=== PATIENT | male | born 1965 | race African-American/Black ===

== ENCOUNTER 2018-04-23 05:20 | Inpatient (IN) | payer BC, MEDICARE ==
[~2018-04-23] VITALS: Ht 172.7 cm; Wt 71.7 kg
--- NOTE | 2018-04-23 05:30 | NUR ---
ED Nurse Note: Pt walked into the ER stating that he missed his dyalisis. regular days are mon, mon, , and mon. pt stated he was traveling so he missed his dyalisis. additionally, pt states the feels a bit of fluid overload, (additionall weight, pressure around the heart and lungs). external defibulater noted. fistula located on L arm, thrill and bruit noted. pulsation and sensation noted on fistula extremity. traig BP is 175/ 101.
[2018-04-23 05:40] VITALS: BP 171/101
[2018-04-23] MEDS ORDERED: CALCIUM ACETAT667 MG PO (05:43)
[2018-04-23] MEDS ORDERED: VELPHORO500 MG PO ×2 (05:43→05:45)
[2018-04-23] MEDS ORDERED: CALCIUM ACETAT667 M1 PO (05:45)
[2018-04-23] MEDS ORDERED: LISINOPRIL20 MG ORAL (05:47)
[2018-04-23] MEDS ORDERED: CARVEDILOL25 MG ORAL (05:47)
[2018-04-23] MEDS ORDERED: LIPITOR80 MG ORAL (05:48)
[2018-04-23 06:12] LABS: BASOPHILS % (AUTO) 0.9 % (0.0-2.0); EOSINOPHILS % (AUTO) 6.3 % (0.0-3.0); HEMATOCRIT 34.8 % (42.0-52.0); HEMOGLOBIN 10.6 G/DL (14.2-18.0); LYMPHOCYTES % (AUTO) 19.8 % (20.0-45.0); MEAN CORPUSCULAR VOLUME 82 FL (80-99); MONOCYTES % (AUTO) 9.9 % (1.0-10.0); NEUTROPHILS % (AUTO) 63.1 % (45.0-75.0); PLATELET COUNT 130 K/UL (150-450); RED BLOOD COUNT 4.23 M/UL (4.70-6.10); RED CELL DISTRIBUTION WIDTH 13.2 % (11.6-14.8); WHITE BLOOD COUNT 5.5 K/UL (4.8-10.8)
--- NOTE | 2018-04-23 06:16 | Emergency Room Report ---
History of Present Illness General Chief Complaint: General Complaint Source: Patient Present Illness HPI Henry is a 52-year-old male with a history of renal failure on hemodialysis. He normally gets it Monday and Monday. Recently he has to get it more frequently at 4 times a week. 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 He missed his dialysis but got it on Monday. He had some cough and little congestion shortness of breath. He try to get to dialysis this morning but there was no slots. He was told by his manager of digital to come in to check to make sure. Patient has no chest pain. Nothing made it better. No exertional component. No diaphoresis. No nausea no vomiting. Coughing is nonproductive in nature. Patient has a external Zoll defibrillator. He said that his ejection fraction is around 15-20% per his retail sales representative. He said that insurance would not pay for an internal defibrillator so he bought this one just in case. Allergies: Coded Allergies: No Known Allergies (Unverified , 04/23/18) Patient History Past Medical History: see triage record, old chart reviewed, HTN, CHF, renal disease, dialysis Past Surgical History: other Pertinent Family History: none Social History: Denies: smoking Immunizations: other Reviewed Nursing Documentation: PMH: Agreed; PSxH: Agreed Nursing Documentation-PMH Hx Hypertension: Yes - CHF Hx Pacemaker: Yes - EXTERNAL DEFIB Hx Dialysis: Yes Review of Systems Eye: Denies: eye pain, blurred vision ENT: Denies: ear pain, nose congestion, throat swelling Respiratory: Reports: cough; Denies: shortness of breath Cardiovascular: Denies: chest pain, palpitations Gastrointestinal: Denies: abdominal pain, diarrhea, nausea, vomiting Musculoskeletal: Denies: back pain, joint pain Skin: Denies: rash Neurological: Denies: headache, numbness Endocrine: Denies: increased thirst, increased urine Hematologic/Lymphatic: Denies: easy bruising All Other Systems: negative except mentioned in HPI Physical Exam Vital Signs Date Time Temp Pulse Resp B/P (MAP) Pulse Ox O2 Delivery O2 Flow Rate FiO2 04/23/18 05:25 98.1 86 18 171/101 99 Room Air 04/23/18 05:40 99 vitals with high blood pressure Sp02 EP Interpretation: reviewed, normal General Appearance: well appearing, no apparent distress, alert Head: normocephalic, atraumatic Eyes: bilateral eye PERRL, bilateral eye EOMI ENT: hearing grossly normal, normal pharynx Neck: full range of motion, supple, no meningismus Respiratory: chest non-tender, lungs clear, normal breath sounds Cardiovascular #1: regular rate, rhythm, no murmur Gastrointestinal: normal bowel sounds, non tender, no mass, no organomegaly, no bruit, non-distended Musculoskeletal: back normal, gait/station normal, normal range of motion Psychiatric: mood/affect normal Skin: warm/dry Medical Decision Making Diagnostic Impression: Primary Impression: CHF exacerbation Qualified Codes: I50.9 - Heart failure, unspecified Additional Impressions: Fluid overload Qualified Codes: E87.70 - Fluid overload, unspecified Cardiomyopathy Qualified Codes: I42.9 - Cardiomyopathy, unspecified ER Course Patient with a cough and mildly short of breath. He does have severe cardiomyopathy on his chest x-ray. No severe fluid overloaded on the chest x- ray but with his severe cardiomyopathy and elevated BUN >100, will admit for urgent dialysis. I spoke with Dr. Mcguire who will admit. Lab Results Impression labs with elevated BUN/creatinine and creatinine EKG Diagnostic Results Rate: normal Rhythm: NSR ST Segments: other - NSST changes Rhythm Strip Diag. Results Rhythm Strip Time: 06:21 EP Interpretation: yes Rate: 75 Rhythm: NSR, no PVC's, no ectopy Last Vital Signs Date Time Temp Pulse Resp B/P (MAP) Pulse Ox O2 Delivery O2 Flow Rate FiO2 04/23/18 05:40 98.1 83 18 171/101 99 Room Air 04/23/18 05:40 99 Status: unchanged Disposition: ADMITTED INPATIENT Condition: Serious Nicolas Marrero MD Apr 23, 2018 06:16
[2018-04-23 06:26] LABS: ANION GAP 15 mmol/L (5-15); BLOOD UREA NITROGEN 119 mg/dL (7-18); CALCIUM 8.5 MG/DL (8.5-10.1); CARBON DIOXIDE 26 MMOL/L (21-32); CHLORIDE 102 MMOL/L (98-107); CREATININE 14.7 MG/DL (0.55-1.30); POTASSIUM 5.1 MMOL/L (3.5-5.1); SODIUM 143 MMOL/L (136-145)
[2018-04-23 06:39] LABS: ALANINE AMINOTRANSFERASE 29 U/L (12-78); ALBUMIN 2.9 G/DL (3.4-5.0); ALBUMIN/GLOBULIN RATIO 0.9 (1.0-2.7); ALKALINE PHOSPHATASE 136 U/L (46-116); ASPARTATE AMINO TRANSFERASE 23 U/L (15-37); BILIRUBIN,TOTAL 0.3 MG/DL (0.2-1.0); CREATINE KINASE 138 U/L (26-308)
[2018-04-23 07:03] VITALS: BP 139/92
--- NOTE | 2018-04-23 08:00 | NUR ---
NURSE NOTES: I received the patient from the ER. Patient was alert and oriented x4 and ambulatory. Patient's IV was intact. Patient had money that was counted with ER nurse, amount confirmed and listed on the belongings sheet. Patient denied sending money to the safe. I will continue to monitor the patient and await for orders.
--- NOTE | 2018-04-23 08:15 | NUR ---
NURSE NOTES: Message left for Dr. Lora making him aware the patient is on the floor and asking for orders. Patient is resting in bed and does not display any signs of distress.
--- NOTE | 2018-04-23 08:20 | NUR ---
ED Nurse Note: report given to Karol in 2E.
[2018-04-23] MEDS ORDERED: Heparin Sod 1000 units/ml 10ml IV PRN (08:21)
--- NOTE | 2018-04-23 08:36 | NUR ---
ED Nurse Note: patient is transferred to [address] [place] [address], belonging list checked and signed by the patient, patient has baker $124, checked with Karol RN in front of the patient. all the other [facility] patient took with him to [facility]. A/O x4, ambulatory.
[2018-04-23 09:00] VITALS: BP 155/95
--- NOTE | 2018-04-23 09:30 | NUR ---
NURSE NOTES: I left another message for Dr. Lora requesting orders for the patient. The patient is asking for something to eat and I let him know I need to wait for an order from the doctor.
--- NOTE | 2018-04-23 10:13 | Diagnostic Imaging Report ---
Indication: Shortness of breath Technique: One view of the chest Comparison: none Findings: The heart is enlarged. There is suggestion of a small left pleural effusion. There is very mild central vascular congestion and bronchial wall thickening. Surgical clips and a vascular stent are seen in the left upper arm Impression: Cardiomegaly Probable small left pleural effusion Equivocal minimal congestive changes
[2018-04-23 12:00] VITALS: BP 163/87
--- NOTE | 2018-04-23 15:29 | Cardiac Electrophysiology PN ---
Subjective Subjective [id number] Objective Last 24 Hour Vital Signs Date Time Temp Pulse Resp B/P (MAP) Pulse Ox O2 Delivery O2 Flow Rate FiO2 04/23/18 12:00 98.4 74 16 163/87 (112) 97 04/23/18 11:53 76 04/23/18 09:30 Room Air 04/23/18 09:00 97.5 77 16 155/95 (115) 04/23/18 08:30 98.1 73 18 139/92 99 Room Air 99 04/23/18 07:03 98.1 73 18 139/92 99 Room Air 04/23/18 05:40 98.1 83 18 171/101 99 Room Air 04/23/18 05:40 86 18 Room Air 99 04/23/18 05:25 98.1 86 18 171/101 99 Room Air Laboratory Tests Test 04/23/18 05:55 White Blood Count 5.5 K/UL (4.8-10.8) Red Blood Count 4.23 M/UL (4.70-6.10) L Hemoglobin 10.6 G/DL (14.2-18.0) L Hematocrit 34.8 % (42.0-52.0) L Mean Corpuscular Volume 82 FL (80-99) Mean Corpuscular Hemoglobin 25.2 PG (27.0-31.0) L Mean Corpuscular Hemoglobin Concent 30.6 G/DL (32.0-36.0) L Red Cell Distribution Width 13.2 % (11.6-14.8) Platelet Count 130 K/UL (150-450) L Mean Platelet Volume 7.5 FL (6.5-10.1) Neutrophils (%) (Auto) 63.1 % (45.0-75.0) Lymphocytes (%) (Auto) 19.8 % (20.0-45.0) L Monocytes (%) (Auto) 9.9 % (1.0-10.0) Eosinophils (%) (Auto) 6.3 % (0.0-3.0) H Basophils (%) (Auto) 0.9 % (0.0-2.0) Sodium Level 143 MMOL/L (136-145) Potassium Level 5.1 MMOL/L (3.5-5.1) Chloride Level 102 MMOL/L (98-107) Carbon Dioxide Level 26 MMOL/L (21-32) Anion Gap 15 mmol/L (5-15) Blood Urea Nitrogen 119 mg/dL (7-18) H Creatinine 14.7 MG/DL (0.55-1.30) H Estimat Glomerular Filtration Rate 4.2 mL/min (>60) Glucose Level 152 MG/DL (74-106) H Calcium Level 8.5 MG/DL (8.5-10.1) Total Bilirubin 0.3 MG/DL (0.2-1.0) Aspartate Amino Transf (AST/SGOT) 23 U/L (15-37) Alanine Aminotransferase (ALT/SGPT) 29 U/L (12-78) Alkaline Phosphatase 136 U/L (46-116) H Total Creatine Kinase 138 U/L (26-308) Creatine Kinase MB 2.0 NG/ML (0.0-3.6) Creatine Kinase MB Relative Index 1.4 Troponin I 0.054 ng/mL (0.000-0.056) Total Protein 6.2 G/DL (6.4-8.2) L Albumin 2.9 G/DL (3.4-5.0) L Globulin 3.3 g/dL Albumin/Globulin Ratio 0.9 (1.0-2.7) L Roderick Monroe MD Apr 23, 2018 15:29
[2018-04-23 16:00] VITALS: BP 156/88
[2018-04-23] MEDS ORDERED: Calcium Acetate 667mg Tab ORAL SCH ×2 (16:30→17:30)
[2018-04-23] MEDS: Lisinopril 20mg tab ORAL SCH (17:25)
[2018-04-23] MEDS ORDERED: Lisinopril 20mg tab ORAL SCH (18:00)
--- NOTE | 2018-04-23 19:43 | NUR ---
HAND-OFF: Report given to ALENA Anderson.
--- NOTE | 2018-04-23 19:50 | NUR ---
NURSE NOTES: Received report from ALENA Roberson. Patient is awake resting in bed aox4. Breathing even and non labored. Patient denies pain or any discomfort. Vital signs stable. Bed in lowest position. Call light within reach. Will continue plan of care.
[2018-04-23 20:00] VITALS: BP 156/94
--- NOTE | 2018-04-23 20:15 | History and Physical Report ---
DATE OF ADMISSION: 04/23/2018 CHIEF COMPLAINT: Shortness of breath. HISTORY OF PRESENT ILLNESS: This is a 52-year-old male, who is on dialysis every Monday, Monday, Monday. The patient missed 2 dialysis sessions The patient did not notify the dialysis center. He presented to the emergency department complaining of shortness of breath. The patient has an unfortunate combination of advanced ischemic cardiomyopathy with ejection fraction of 15 to 20 percent. (see another document for 2nd part) Marcy Lora M.D. DR: REGGIE JOB#: [id number] CC: ROSSANA
[2018-04-23] MEDS: Heparin 5000 units/ml inj SUBQ SCH (20:39)
[2018-04-23] MEDS: Carvedilol 25mg Tab ORAL SCH (20:39)
--- NOTE | 2018-04-23 20:45 | History and Physical Report ---
DATE OF ADMISSION: 04/23/2018 ADDENDUM (2nd part) HISTORY OF PRESENT ILLNESS: The patient became short of breath and is admitted for urgent hemodialysis. The patient is not transferable. The patient in his external ZOLL defibrillator. The patient should be refilled for a kidney heart transplant soon. PAST MEDICAL HISTORY: 1. End-stage cardiomyopathy. 2. End-stage renal failure, on dialysis. 3. Noncompliance. 4. Hypertensive cardiovascular disease. MEDICATIONS: Atorvastatin, calcium acetate, Coreg, lisinopril, Velphoro which is sucroferric oxyhydroxide with meals. ALLERGIES: No known drug allergies. FAMILY HISTORY: Unremarkable. 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 HABITS: He is nonsmoker and nondrinker. There is no history of illicit drug abuse. REVIEW OF SYSTEMS: HEENT: Hearing and eyesight are normal. ENDOCRINE: No history of diabetes, thyroid or adrenal problems. RESPIRATORY: He has orthopnea, paroxysmal nocturnal dyspnea, and dyspnea on effort. CARDIAC: The patient has end-stage cardiomyopathy. NEUROLOGICAL: No history of stroke, syncope, Parkinson disease. PHYSICAL EXAMINATION: GENERAL: This is a middle-aged male who is in no acute distress. VITAL SIGNS: Blood pressure 163/87, pulse 74 and regular, respirations 16, O2 saturation 99% on room air. HEENT: Head is normocephalic and atraumatic. Pupils are equal, round, and reactive to light and accommodation consensually. NECK: Supple. Trachea midline. There was no lymphadenopathy or thyromegaly. LUNGS: Few bilateral crackles. HEART: Regular rate and rhythm. He has a grade 2 systolic ejection murmur at the left sternal border. ABDOMEN: Soft and nontender. Bowel sounds were active. EXTREMITIES: No clubbing, cyanosis, or edema. He has a left upper arm AV fistula with thrill and bruit. NEUROLOGICAL: He is alert and oriented x4. Cranial nerves II through XII intact. LABORATORY AND ANCILLARY DATA: CBC, white count 5.5, hematocrit 34.8, and platelet count 130,000. Chemistry, electrolytes within normal limits. Creatinine 14.7, BUN 119. TropI 0.054. Chest x-ray, cardiomegaly, small left pleural effusion. EKG normal sinus rhythm, left atrial enlargement, septal infarct, old septal infarct. ASSESSMENT: 1. End-stage cardiomyopathy. 2. End-stage renal failure on dialysis. 3. Noncompliance. 4. Hypertensive cardiovascular disease. 5. Mild uremia. PLAN: 1. Hemodialysis already done. 2. Cardiology consult by Dr. Monroe, the patient's paediatric surgeon. 3. Consider discharge tomorrow if the patient is hemodynamically and cardiac angel stable. Marcy Lora M.D. DR: Omar JOB#: [id number] CC: ROSSANA
--- NOTE | 2018-04-23 20:45 | Consultation ---
DATE OF CONSULTATION: 04/23/2018 CARDIOLOGY CONSULTATION CONSULTING PHYSICIAN: Roderick Monroe M.D. REFERRING PHYSICIAN: Marcy Lora M.D. REASON FOR CONSULTATION: Evaluation of congestive heart failure. HISTORY OF PRESENT ILLNESS: The patient is a 52-year-old gentleman under my Cardiology care with history of hypertension, end-stage renal disease on hemodialysis through left arm AV fistula. The patient was diagnosed with severe nonischemic cardiomyopathy with ejection fraction of 20% by cardiac catheterization by id on 01/29/2018. The patient was discharged with a LifeVest. His repeat echocardiogram; however performed on 03/26/2018 showed ejection fraction was still 30%. The patient presented to the hospital as he could not get dialyzed and there were no slots. The patient was admitted and just underwent hemodialysis. REVIEW OF SYSTEMS: Review of systems was performed and was negative other than what was mentioned in the history of present illness. PAST MEDICAL HISTORY: 1. Hypertension. 2. 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 3. Cardiac catheterization by id on 01/29/2018 that showed no coronary artery disease. 4. Status post LifeVest placement by id. FAMILY HISTORY: Noncontributory. SOCIAL HISTORY: Does not smoke or drink alcohol. Lives with family. PHYSICAL EXAMINATION: VITAL SIGNS: Blood pressure is 171/100, pulse is 86, respiratory rate 18, temperature 98.1. HEAD AND NECK: Shows mild JVD. LUNGS: Decreased breath sounds. CARDIOVASCULAR: Regular S1 and S2 with no gallop. ABDOMEN: Soft. EXTREMITIES: Left AV fistula. LABORATORY AND DIAGNOSTIC DATA: His EKG showed sinus rhythm with left axis deviation, QRS duration of 90 milliseconds, diffuse ST-T wave abnormality. Labs shows white count 5.5, hematocrit 10.7, hematocrit 34.8, and platelet count 130. Sodium 142, potassium 5.1, BUN 119, creatinine 14.7. Troponin is negative. ASSESSMENT AND PLAN: 1. Severe nonischemic dilated cardiomyopathy with ejection fraction of 25 to 30%. The patient has already been optimized for medical therapy, Coreg 25 mg b.i.d. and lisinopril increased to 20 mg b.i.d. as well as hemodialysis. His last ejection fraction was 30% on 03/26/2018. We will repeat echocardiogram. If the ejection fraction is still less than 35%, we will upgrade internal defibrillator. 2. For hypertension, continue current heart failure therapy, hemodialysis. 3. End-stage renal disease, on hemodialysis through left arm. 4. History of hyperlipidemia, on Lipitor. Thank you very much, Dr. Brown, for allowing me to participate in the care of this patient. Please do not hesitate to contact me for any questions regarding my evaluation. Sincerely, Roderick Monroe M.D. DR: Calixto JOB#: [id number] CC:
[2018-04-23] MEDS ORDERED: Atorvastatin 20mg tab ORAL SCH (21:00)
[2018-04-24 04:00] VITALS: BP 146/93
[2018-04-24] MEDS ORDERED: Calcium Acetate 667mg Tab ORAL SCH (06:30)
[2018-04-24] MEDS: Calcium Acetate 667mg Tab ORAL SCH ×3 (06:58→17:32)
--- NOTE | 2018-04-24 07:25 | NUR ---
HAND-OFF: Report given to ALENA Roberson.
--- NOTE | 2018-04-24 07:25 | NUR ---
NURSE NOTES: I received the patient sitting at the side of his bed and eating breakfast. Patient alert and oriented x4. patient does not display any signs of distress or SOB. I will continue to monitor the patient and implement care.
[2018-04-24 07:51] VITALS: BP 152/96
[2018-04-24] MEDS: Lisinopril 20mg tab ORAL SCH ×2 (08:01→17:33)
[2018-04-24] MEDS: Carvedilol 25mg Tab ORAL SCH (08:01)
[2018-04-24] MEDS: Heparin 5000 units/ml inj SUBQ SCH (08:02)
[2018-04-24] MEDS ORDERED: Lisinopril 20mg tab ORAL SCH (09:00)
--- NOTE | 2018-04-24 10:52 | Cardiac Electrophysiology PN ---
Assessment/Plan Assessment/Plan 1. Severe nonischemic dilated cardiomyopathy with ejection fraction of 25 to 30%. The patient has already been optimized for medical therapy, Coreg 25 mg b.i.d. and lisinopril 20 mg b.i.d. as well as hemodialysis. His last ejection fraction was 30% on 03/26/2018. Repeat Echo today showed EF 20-25%. Will schedule for Right sided ICD implant as out patient. 2. Hypertension, continue current heart failure therapy and hemodialysis. 3. End-stage renal disease, on hemodialysis through left arm. 4. History of hyperlipidemia, on Lipitor. MAHAMED CARVAJAL andDr Lora Subjective Subjective Feeling better after HD. No CP or SOB Objective Last 24 Hour Vital Signs Date Time Temp Pulse Resp B/P (MAP) Pulse Ox O2 Delivery O2 Flow Rate FiO2 04/24/18 09:00 Room Air 04/24/18 08:01 152/96 04/24/18 08:01 89 152/96 04/24/18 07:51 98.2 89 20 152/96 (114) 95 04/24/18 07:38 87 04/24/18 04:00 98.2 79 18 146/93 (110) 99 04/24/18 04:00 78 04/24/18 00:00 77 04/23/18 21:00 Room Air 04/23/18 20:39 81 156/94 04/23/18 20:00 76 04/23/18 20:00 99.6 81 18 156/94 (114) 99 04/23/18 17:25 156/88 04/23/18 16:00 97.9 78 16 156/88 (110) 98 04/23/18 15:27 82 04/23/18 12:00 98.4 74 16 163/87 (112) 97 04/23/18 11:53 76 Intake and Output 04/23/18 04/24/18 18:59 06:59 Intake Total 120 ml 240 ml Balance 120 ml 240 ml Intake Oral 120 ml 240 ml # Voids 1 1 # Bowel Movements 1 Objective HEAD AND NECK: Shows mild JVD. LUNGS: Decreased breath sounds. CARDIOVASCULAR: Regular S1 and S2 with no gallop. ABDOMEN: Soft. EXTREMITIES: Left AV fistula. Roderick Monroe MD Apr 24, 2018 10:52
[2018-04-24 12:00] VITALS: BP 141/89
--- NOTE | 2018-04-24 13:10 | Nephrology Progress Note ---
Assessment/Plan Plan Repeat 2D Echo LVEf 25%. AICD as an outpatient. DC home Subjective Subjective No new c/o Objective Objective Last 24 Hour Vital Signs Date Time Temp Pulse Resp B/P (MAP) Pulse Ox O2 Delivery O2 Flow Rate FiO2 04/24/18 12:00 97.9 75 19 141/89 (106) 94 04/24/18 11:34 74 04/24/18 09:00 Room Air 04/24/18 08:01 152/96 04/24/18 08:01 89 152/96 04/24/18 07:51 98.2 89 20 152/96 (114) 95 04/24/18 07:38 87 04/24/18 04:00 98.2 79 18 146/93 (110) 99 04/24/18 04:00 78 04/24/18 00:00 77 04/23/18 21:00 Room Air 04/23/18 20:39 81 156/94 04/23/18 20:00 76 04/23/18 20:00 99.6 81 18 156/94 (114) 99 04/23/18 17:25 156/88 04/23/18 16:00 97.9 78 16 156/88 (110) 98 04/23/18 15:27 82 Intake and Output 04/23/18 04/24/18 19:00 07:00 Intake Total 120 ml 240 ml Balance 120 ml 240 ml Intake Oral 120 ml 240 ml # Voids 1 1 # Bowel Movements 1 Height (Feet): 5 Height (Inches): 8.00 Weight (Pounds): 158 Objective CV RR Lungs CTa Abd SNT. BS + E no CCE. EDSON Marcy Merida MD Apr 24, 2018 13:10
--- NOTE | 2018-04-24 14:51 | Cardiology Report ---
APPROVED REPORT EXAM: Two-dimensional and M-mode echocardiogram with Doppler and color Doppler. INDICATION Congestive Heart Failure M-Mode DIMENSIONS IVSd2.0 (0.7-1.1cm)Left Atrium (MM)4.2 (1.6-4.0cm) LVDd5.8 (3.5-5.6cm)Aortic Root4.2 (2.0-3.7cm) PWd1.2 (0.7-1.1cm)Aortic Cusp Exc.2.8 (1.5-2.0cm) IVSs1.6 cm LVDs5.0 (2.5-4.0cm) PWs1.4 cm Global left ventricular hypokinesis.worse in the inferior and inferolateral moya the are increased echoes in sán[place] lateral wall area, a thrombus cannot be excluded dr pili jernigan at 2;30 pm Mild left ventricular enlargement . Left ventricular ejection fraction estimated to be 20-25 % mild ventricular hypertrophy. No evidence of pericardial effusion. All other cardiac chamber sizes are within normal limits. Moderate left and right atrial enlargement. Atrial septal aneursysm noted Right ventricular chamber sizes is within normal limits. Focal aortic valve sclerosis with adequate cusp excursion. Thickened mitral valve leaflets with normal excursion. Mitral annulus and aortic root calcification. Normal pulmonic valve structure. Normal tricuspid valve structure. IVC dilated at 3.3m with slightly physiological collapse suggestive to increase RA pressure ,RA pressure estimated 15 mmhg. A color flow and spectral Doppler study was performed and revealed: Mild aortic regurgitation . Mild mitral regurgitation. Mitral inflow velocities indicates possible pseudo normalization pattern implying moderately elevated left atrial pressure (Grade II ). Mild ricuspid regurgitation. Tricuspid systolic velocities suggests peak right ventricular systolic pressure of 55 mmHg,consistent with moderate pulmonary hypertension. Pulmonic regurgitation present.
--- NOTE | 2018-04-24 14:56 | NUR ---
Social Service Note Return to work letter completed and faxed to nursing station [phone].
[2018-04-24 16:00] VITALS: BP 150/86
--- NOTE | 2018-04-24 16:45 | NUR ---
CASE MANAGEMENT: REVIEW 52/M PRESENTED TO ED FROM HOME CC: MISSED DIALYSIS SI: FLUID OVERLOAD T 97.5 HR 73 RR 18 BP 171/101 SAT 99% ROOM AIR BUN 119 CR 14.7 ALK PHOS 136 IS: LASIX IV X1 HEMODIALYSIS X1 INTERQUAL CRITERIA MET: PATIENT ADMITTED TO TELEMETRY UNIT 04/23/2018 DCP: PATIENT IS FROM HOME
[2018-04-24 17:33] VITALS: BP 150/86
--- NOTE | 2018-04-24 18:23 | NUR ---
NURSE NOTES: Patient discharged in stable condition. Patient's IV removed and the site did not display any signs of bleeding, redness or swelling. Patient in stable condition [facility] Patient verbalized understanding of taking his home medications. Patient in stable condition and did not display any signs of distress or SOB.
--- NOTE | 2018-04-25 13:56 | Discharge Summary ---
Discharge Summary Discharge Summary _ DATE OF ADMISSION: 04/23/2018 DATE OF DISCHARGE: 04/24/2018 DISCHARGED BY: Dr. Lora REASON FOR ADMISSION: 52 years old male with end-stage renal disease, on hemodialysis, hypertensive cardiovascular disease, end-stage cardiomyopathy, presented with shortness of breath and need for urgent hemodialysis. Patient usually gets hemodialysis Monday and Monday. Recently patient started to get hemodialysis 4 times a week. 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 Patient reported nonproductive cough , congestion and shortness of breath. No chest pain. He was unable to get hemodialysis that morning prior to presentation to the emergency department. He was told by his bathhouse keeper to come to ED . Patient had external defibrillator ZOLL . Laboratory workup revealed BUN 119, creatinine 14.7. Troponin was negative. No leukocytosis, hemoglobin 10.6, hematocrit 24.8. Chest x-ray revealed cardiomegaly, small left pleural effusion, minimal congestive changes. Patient admitted with diagnosis of end-stage renal disease on hemodialysis, noncompliance, hypertensive cardiovascular disease, end-stage cardiomyopathy, mild uremia. CONSULTANTS: television schedule coordinator Dr. Workman [facility]: Patient admitted to telemetry floor. Urgent hemodialysis was done with close monitoring of volumes and renal parameters. Cardiology consult was requested. Echocardiogram revealed ejection fraction of 20-25% with mild left ventricular hypertrophy. Global left ventricular hypokinesis, worse in the inferior and inferolateral moya . Right ventricular systolic pressure of 55 consistent with moderate pulmonary hypertension. Mitral inflow velocities indicated possible pseudo normalization pattern implying moderately elevated left atrial pressure (Grade II ). Anti-failure medication regimen was optimized by television schedule coordinator; patient was continued on Coreg and lisinopril dose was increased. Blood pressure was managed with WILLIAN inhibitor and beta-oneyda. Statin was continued. Prior ejection fraction was 30% and current 20 to 25%. Patient will be scheduled for placement of internal cardiac defibrillator as outpatient. Continue hemodialysis as scheduled, compliance was encouraged. DVT prophylaxis provided. Patient was stable for discharge home. Due to rapid and unexpected improvement in patient condition, patient was discharged in 1 day. FINAL DIAGNOSES: End-stage cardiomyopathy/nonischemic dilated with ejection fraction 25-30% Hypertensive cardiovascular disease End-stage renal disease , on hemodialysis Hyperlipidemia Mild uremia Noncompliance DISCHARGE MEDICATIONS: See Medication Reconciliation list. DISCHARGE INSTRUCTIONS: Patient was discharged home. Follow-up with outpatient hemodialysis as scheduled. Reinforced compliance with hemodialysis. Outpatient AICD placement I have been assigned to dictate discharge summary for this account. I was not involved in the patient's management. Carmen Esquivel NP Apr 25, 2018 13:55
== END 2018-04-24 18:26 | disposition home or self-care (01) | DRG 682 ==
LOC: EMR 05:54 → 2E 07:08 → EDBEDREQ 07:16 → 2E 17:28
PROC: 5A1D70Z Performance of Urinary Filtration, Intermittent, Less than 6 Hours Per Day (ICD-10-PCS; principal; 2018-04-23)
DX: I13.11 Hypertensive heart and chronic kidney disease without heart failure, with stage 5 chronic kidney disease, or end stage renal disease (principal); N18.6 End stage renal disease; I42.0 Dilated cardiomyopathy; Z99.2 Dependence on renal dialysis; Z91.15 Patient's noncompliance with renal dialysis; E78.5 Hyperlipidemia, unspecified
CPT/HCPCS: 36415; 71045; 80053; 82550; 82553; 84484; 85025; 87081; 93005; 93306; 96374; 99285